=== PATIENT | male | born 1935 | race Caucasian/White ===

== ENCOUNTER 2019-03-27 09:54 | Outpatient (CLI) | payer MEDICARE, OTHER ==
--- NOTE | 2019-03-27 10:59 | RAD ---
XR UGI Air Contrast HISTORY: Evaluation of hiatal hernia COMPARISON: None. FINDINGS: Patient ingested barium and crystals without difficulty. There are tertiary contractions of the distal esophagus and moderate persistent reflux during the study. A large hiatal hernia is present to the level the body of the stomach. 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 IMPRESSION: Large hiatal hernia with moderate reflux demonstrated during the exam.
== END 2019-03-27 09:55 | disposition home or self-care (01) ==
LOC: RAD 09:54
PROVIDERS: ATTEND Specialist
DX: K44.9 Diaphragmatic hernia without obstruction or gangrene (principal); K21.9 Gastro-esophageal reflux disease without esophagitis
CPT/HCPCS: 74247

== ENCOUNTER 2019-04-09 13:34 | Outpatient (CLI) | payer MEDICARE, OTHER ==
--- NOTE | 2019-04-09 14:18 | RAD ---
TWO VIEWS OF THE CHEST: COMPARISON: 02/25/2019. HISTORY: Dyspnea. FINDINGS: Two views of the chest show a normal-size cardiomediastinal silhouette. There is a large hiatal kurtis ia. Bibasilar atelectasis versus scarring is stable. Degenerative changes are seen in the spine. IMPRESSION: Large hiatal hernia. POS: TPC
== END 2019-04-09 13:35 | disposition home or self-care (01) ==
LOC: RAD 13:34
PROVIDERS: ATTEND Internal Medicine Pulmonary Disease
DX: R06.00 Dyspnea, unspecified (principal); K44.9 Diaphragmatic hernia without obstruction or gangrene
CPT/HCPCS: 71046

== ENCOUNTER 2019-04-24 12:23 | Outpatient (CLI) | payer MEDICARE, OTHER ==
--- NOTE | 2019-04-28 09:18 | PFT ---
PATIENT HISTORY: HEIGHT: 69 IN WEIGHT: 181 LBS SMOKER: NO HOW LON YRS PACKS PER DAY: .25 PRODUCTIVE COUGH: LUNG DISEASE: PHYSICIAN INTERPRETATION FINAL REPORT: Patient had good effort and good cooperation. FVC 2.95 (78%), FEV1 1.82 (68%), FEV1/FVC 0.62. RV 2.58 (90%), TLC 5.58 (84%) DIFFUSION 13.59 (52%) There is a reduction to both the FEV1 and FVC. The ratio is consistent with obstructive air flow limitation. This is confirmed by the scooping contour on the expiratory limb of the flow volume loop. There is a significant improvement following the administration of a bronchodilator. Lung volumes are normal. The diffusion capacity is moderately impaired. 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 Clinical correlation should be considered. Easement Worker: NAM Garbage Stoker: NAM WALKER
== END 2019-04-24 12:24 | disposition home or self-care (01) ==
LOC: CP 12:23
PROVIDERS: ATTEND Internal Medicine Pulmonary Disease
DX: R06.00 Dyspnea, unspecified (principal)
CPT/HCPCS: 94060; 94727; 94729